=== PATIENT | female | born 1950 | race Caucasian/White ===

== ENCOUNTER 2018-02-01 08:05 | Outpatient (CLI) | payer MEDICARE ==
--- NOTE | 2018-02-01 09:35 | ULT ---
ABDOMINAL ULTRASOUND: History: Abdominal pain. Elevated liver function test. FINDINGS: Real-time imaging of the upper abdomen demonstrates a normal appearing gallbladder. The common duct i s 2 mm. Visualized liver parenchyma shows no focal findings. The spleen is 7.7 cm in length. Right and left kidneys are within normal limits of size. No obstruction. Pancreas is obscured. Abdominal aorta and IVC regions appear unremarkable. IMPRESSION: Unremarkable abdominal ultrasound. POS: [facility]
== END 2018-02-01 08:06 | disposition home or self-care (01) ==
LOC: MADULT 08:05
PROVIDERS: ATTEND Family Medicine
DX: R94.5 Abnormal results of liver function studies (principal)
CPT/HCPCS: 76700

== ENCOUNTER 2018-02-05 09:45 | Emergency (ER) | payer MEDICARE ==
[~2018-02-05 09:45] MED LIST: Lidocaine 1% 20 ML MDV ONE
[2018-02-05] MEDS ORDERED: Triple Antibiotic Oint 1 GM Packet ONE (10:35)
== END 2018-02-05 10:49 | disposition home or self-care (01) ==
LOC: MADERS 09:45
DX: S91.202A Unspecified open wound of left great toe with damage to nail, initial encounter (principal); I10 Essential (primary) hypertension; X50.1XXA Overexertion from prolonged static or awkward postures, initial encounter; Y93.01 Activity, walking, marching and hiking
CPT/HCPCS: 11750; J2001